=== PATIENT | female | born 1960 | race Caucasian/White ===

== ENCOUNTER 2017-10-28 08:50 | Outpatient (CLI) | payer BC, MEDICARE, SELFPAY | END 2017-10-28 09:20 | disposition home or self-care (01) | PROVIDERS: Visit Provider Internal Medicine | DX: Z45.2 Encounter for adjustment and management of vascular access device (principal) | CPT/HCPCS: 96523; J1642 ==

== ENCOUNTER 2017-11-25 10:55 | Outpatient (CLI) | payer BC, MEDICARE, SELFPAY ==
[2017-11-25 11:00] VITALS: BMI 29.0
[2017-11-25 11:20] VITALS: BP 134/81; PULSE 82; RESP 18; TEMP 36.4
== END 2017-11-25 12:00 | disposition home or self-care (01) ==
LOC: INF 14:42
PROVIDERS: Family Provider Internal Medicine; PCP Family Medicine; Visit Provider Internal Medicine
DX: E61.1 Iron deficiency (principal)
CPT/HCPCS: 96523; J1642

== ENCOUNTER 2017-12-23 11:10 | Outpatient (CLI) | payer BC, MEDICARE, SELFPAY | END 2017-12-23 11:25 | disposition home or self-care (01) | LOC: INF 11:22 | PROVIDERS: Family Provider Internal Medicine; PCP Family Medicine; Visit Provider Internal Medicine | DX: Z45.2 Encounter for adjustment and management of vascular access device (principal) | CPT/HCPCS: 96523; J1642 ==

== ENCOUNTER 2018-01-27 12:40 | Outpatient (CLI) | payer BC, MEDICARE, SELFPAY ==
[2018-01-27 12:45] VITALS: BP 133/81; PULSE 64; RESP 18; TEMP 36.7; O2SAT 98
== END 2018-01-27 13:00 | disposition home or self-care (01) ==
LOC: INF 12:51
PROVIDERS: Family Provider Internal Medicine; PCP Family Medicine; Visit Provider Internal Medicine
DX: Z45.2 Encounter for adjustment and management of vascular access device (principal)
CPT/HCPCS: 96523; J1642

== ENCOUNTER 2018-02-22 10:56 | Outpatient (CLI) | payer BC, MEDICARE, SELFPAY ==
[2018-02-22 10:50] VITALS: BP 162/72; PULSE 97; RESP 18; TEMP 36.6; O2SAT 100
== END 2018-02-22 11:00 | disposition home or self-care (01) ==
LOC: INF 10:56
PROVIDERS: Family Provider Internal Medicine; PCP Family Medicine; Visit Provider Internal Medicine
DX: Z45.2 Encounter for adjustment and management of vascular access device (principal)
CPT/HCPCS: 96523; J1642

== ENCOUNTER 2018-04-29 13:40 | Outpatient (CLI) | payer MEDICARE, BC, SELFPAY | END 2018-04-29 14:00 | disposition home or self-care (01) | PROVIDERS: Family Provider Internal Medicine; PCP Family Medicine; Visit Provider Internal Medicine | DX: Z45.2 Encounter for adjustment and management of vascular access device (principal) | CPT/HCPCS: 96523; J1642 ==

== ENCOUNTER 2018-07-19 13:46 | Outpatient (CLI) | payer MEDICARE, BC, SELFPAY | END 2018-07-19 13:50 | disposition home or self-care (01) | LOC: INF 13:46 | PROVIDERS: Family Provider Internal Medicine; PCP Family Medicine; Visit Provider Internal Medicine | DX: Z45.2 Encounter for adjustment and management of vascular access device (principal) | CPT/HCPCS: 96523; J1642 ==

== ENCOUNTER → 2018-09-15 08:06 | Outpatient (CLI) | payer MEDICARE, BC, SELFPAY ==
--- NOTE | 2018-09-15 08:07 | MM_ITS ---
MM Dig screening mamm BI w/CAD CAD Screening COMPARISON: Digital mammograms with CAD 06/12/2016 and 06/03/2015 INDICATION: There is no personal or family history of breast cancer. This been previous biopsy right breast for benign disease. TECHNIQUE: Standard CC and MLO images were obtained. R2 CAD reviewed. FINDINGS: Scattered fibroglandular densities are seen in both breast. There are numerous benign-appearing micro and macrocalcifications lower inner quadrant right breast as noted previously. There are couple benign-appearing calcination is left breast. A Mediport catheter overlies the axillary tail right breast. There is a stable benign-appearing nodular density near the axillary tail left breast likely a low-lying node. There is no suspicious lesion and there are no suspicious microcalcifications. IMPRESSION: Stable exam with no suspicious lesion seen BI-RADS Category: 2 Benign Finding(s) RECOMMENDED FOLLOW-UP: 1YR - 1 YEAR FOLLOW-UP (A letter has been sent to the patient regarding results of the study.)
== END ==
PROVIDERS: PCP Family Medicine; Visit Provider Nurse Practitioner Obstetrics & Gynecology
DX: Z12.31 Encounter for screening mammogram for malignant neoplasm of breast (principal)
CPT/HCPCS: 77067

== ENCOUNTER 2018-11-08 14:04 | Outpatient (CLI) | payer MEDICARE, BC, SELFPAY | END 2018-11-08 14:20 | disposition home or self-care (01) | LOC: INF 14:04 | PROVIDERS: Visit Provider Family Medicine | DX: Z45.2 Encounter for adjustment and management of vascular access device (principal) | CPT/HCPCS: 96523; J1642 ==

== ENCOUNTER 2018-12-07 11:35 | Outpatient (CLI) | payer MEDICARE, BC, SELFPAY | END 2018-12-07 11:50 | disposition home or self-care (01) | LOC: INF 11:35 | PROVIDERS: Visit Provider Family Medicine | DX: Z45.2 Encounter for adjustment and management of vascular access device (principal) | CPT/HCPCS: 96523; J1642 ==

== ENCOUNTER 2019-01-04 12:21 | Outpatient (CLI) | payer MEDICARE, BC, SELFPAY | END 2019-01-04 12:33 | disposition home or self-care (01) | LOC: INF 12:21 | PROVIDERS: Visit Provider Family Medicine | DX: Z45.2 Encounter for adjustment and management of vascular access device (principal) | CPT/HCPCS: 96523; J1642 ==

== ENCOUNTER 2019-02-07 14:30 | Outpatient (CLI) | payer MEDICARE, BC, SELFPAY | END 2019-02-07 14:50 | disposition home or self-care (01) | LOC: INF 14:47 | PROVIDERS: Visit Provider Family Medicine | DX: Z45.2 Encounter for adjustment and management of vascular access device (principal) | CPT/HCPCS: 96523; J1642 ==

== ENCOUNTER 2019-05-05 13:20 | Outpatient (CLI) | payer MEDICARE, BC, SELFPAY ==
[2019-05-05 13:41] VITALS: BMI 31.5
[2019-05-07 17:09] LABS: Vitamin B12 1340 pg/mL (232-1245)
== END 2019-05-05 14:40 | disposition home or self-care (01) ==
LOC: INF 13:28
PROVIDERS: Visit Provider Family Medicine
DX: E53.8 Deficiency of other specified B group vitamins (principal); Z45.2 Encounter for adjustment and management of vascular access device
CPT/HCPCS: 82607; J1642

== ENCOUNTER 2019-07-20 11:11 | Outpatient (CLI) | payer MEDICARE, BC, SELFPAY | END 2019-07-20 11:30 | disposition home or self-care (01) | LOC: INF 11:11 | PROVIDERS: Visit Provider Family Medicine | DX: Z45.2 Encounter for adjustment and management of vascular access device (principal) | CPT/HCPCS: 96523; J1642 ==

== ENCOUNTER 2019-08-16 10:01 | Outpatient (CLI) | payer MEDICARE, BC, SELFPAY | END 2019-08-16 10:45 | disposition home or self-care (01) | LOC: INF 10:01 | PROVIDERS: PCP Family Medicine; Visit Provider Family Medicine | DX: Z45.2 Encounter for adjustment and management of vascular access device (principal) | CPT/HCPCS: 96523; J1642 ==

== ENCOUNTER → 2019-09-11 08:09 | Outpatient (CLI) | payer MEDICARE, BC, SELFPAY ==
[2019-09-11 08:35] LABS: Basophils % 0.7 % (0.1-2.0); Eosinophils # 0.2 K/mm3 (0.0-0.4); Eosinophils % 2.9 % (0.1-12.0); Hematocrit 39.2 % (37.0-47.0); Hemoglobin 12.5 g/dL (12.2-16.2); Lymphocytes # 1.3 K/mm3 (0.7-4.5); Lymphocytes % 20.4 % (10-50); Mean Corpuscular HGB Conc 31.8 g/dL (31.8-35.4); Mean Corpuscular Hemoglobin 28.2 pg (27.0-31.2); Mean Corpuscular Volume 88.8 fl (81-99); Mean Platelet Volume 7.7 fl (7.4-10.4); Monocytes # 0.4 K/mm3 (0.1-1.0); Monocytes % 6.2 % (1.7-9.3); Neutrophils # 4.3 K/mm3 (1.8-7.8); Neutrophils % 69.8 % (37.0-80.0); Platelet Count 265 K/mm3 (142-424); Red Blood Count 4.41 M/mm3 (4.20-5.40); Red Cell Distribution Width 13.6 % (11.5-17.5); White Blood Count 6.1 K/mm3 (4.8-10.8)
[2019-09-11 10:01] LABS: Alanine Aminotransferase 21 U/L (12-78); Albumin Level 3.6 gm/dL (3.4-5.0); Albumin/Globulin Ratio 1.5 (1.1-1.8); Alkaline Phosphatase 106 U/L (46-116); Anion Gap 12.1 mEq/L (5-15); Aspartate Amino Transferase 12 U/L (15-37); Bilirubin,Total 0.3 mg/dL (0.2-1.0); Blood Urea Nitrogen 13 mg/dL (7-18); Calcium 8.3 mg/dL (8.5-10.1); Carbon Dioxide 27 mmol/L (21.0-32.0); Chloride 107 mmol/L (98-107); Estimated Glomerular Filt Rate 73 ml/min (>60); GFR (African American) 89 ML/MIN (>60); Globulin 2.4 gm/dl (1.3-3.2); Glucose 87 mg/dL (74-106); Potassium 4.1 mmoL/L (3.5-5.1); Sodium 142 mmol/L (136-145)
[2019-09-12 09:20] LABS: Vitamin B12 1161 pg/mL (232-1245); Vitamin D 25 Hydroxy 23.5 ng/mL (30.0-100.0)
== END ==
PROVIDERS: Visit Provider Psychiatry & Neurology Clinical Neurophysiology
DX: G35 Multiple sclerosis (principal); E55.9 Vitamin D deficiency, unspecified
CPT/HCPCS: 36415; 80053; 82607; 82652; 85025

== ENCOUNTER 2019-10-30 09:17 | Outpatient (CLI) | payer MEDICARE, BC, SELFPAY ==
[2019-10-30 09:25] VITALS: BP 135/75; PULSE 72; RESP 18; TEMP 36.6; O2SAT 98
== END 2019-10-30 09:30 | disposition home or self-care (01) ==
LOC: INF 09:17
PROVIDERS: Visit Provider Family Medicine
DX: Z45.2 Encounter for adjustment and management of vascular access device (principal)
CPT/HCPCS: 96523; J1642

== ENCOUNTER 2019-11-27 09:41 | Outpatient (CLI) | payer MEDICARE, BC, SELFPAY | END 2019-11-27 09:55 | disposition home or self-care (01) | LOC: INF 09:41 | PROVIDERS: Visit Provider Family Medicine | DX: Z45.2 Encounter for adjustment and management of vascular access device (principal) | CPT/HCPCS: 96523; J1642 ==

== ENCOUNTER 2020-01-26 10:05 | Outpatient (CLI) | payer MEDICARE, BC, SELFPAY | END 2020-01-26 10:14 | disposition home or self-care (01) | LOC: INF 10:05 | PROVIDERS: PCP Family Medicine; Visit Provider Family Medicine | DX: Z45.2 Encounter for adjustment and management of vascular access device (principal) | CPT/HCPCS: 96523; J1642 ==

== ENCOUNTER 2020-02-23 09:24 | Outpatient (CLI) | payer MEDICARE, BC, SELFPAY ==
[2020-02-23 09:15] VITALS: BP 112/74; PULSE 68; RESP 20; TEMP 36.9; O2SAT 95
== END 2020-02-23 09:35 | disposition home or self-care (01) ==
LOC: INF 09:24
PROVIDERS: Visit Provider Family Medicine
DX: Z45.2 Encounter for adjustment and management of vascular access device (principal)
CPT/HCPCS: 96523; J1642

== ENCOUNTER → 2020-03-13 12:48 | Outpatient (CLI) | payer MEDICARE, BC, SELFPAY ==
[2020-03-13 13:19] LABS: Basophils % 0.4 % (0.1-2.0); Eosinophils # 0.2 K/mm3 (0.0-0.4); Hematocrit 37.9 % (37.0-47.0); Hemoglobin 11.7 g/dL (12.2-16.2); Lymphocytes # 1.3 K/mm3 (0.7-4.5); Lymphocytes % 16.4 % (10-50); Mean Corpuscular Hemoglobin 25.2 pg (27.0-31.2); Mean Corpuscular Volume 81.3 fl (81-99); Mean Platelet Volume 7.7 fl (7.4-10.4); Monocytes # 0.6 K/mm3 (0.1-1.0); Monocytes % 6.9 % (1.7-9.3); Neutrophils % 74.3 % (37.0-80.0); Platelet Count 342 K/mm3 (142-424); Red Blood Count 4.65 M/mm3 (4.20-5.40)
[2020-03-13 14:15] LABS: Alanine Aminotransferase 15 U/L (12-78); Albumin Level 4.1 g/dl (3.5-5.0); Albumin/Globulin Ratio 1.9 (1.1-1.8); Alkaline Phosphatase 91 U/L (38-126); Anion Gap 7.7 mEq/L (5-15); Aspartate Amino Transferase 19 U/L (14-36); Bilirubin,Total 0.3 mg/dl (0.2-1.3); Blood Urea Nitrogen 14 mg/dl (7-17); Calcium 9.1 mg/dl (8.4-10.2); Carbon Dioxide 28 mmol/L (22.0-30.0); Chloride 106 mmol/L (98-107); Estimated Glomerular Filt Rate 73 ml/min (>60); GFR (African American) 88 ML/MIN (>60); Globulin 2.2 g/dL (1.3-3.2); Glucose 96 mg/dl (74-100); Potassium 4.7 mmoL/L (3.5-5.1); Sodium 137 mmol/L (136-145); Total Protein,Serum 6.3 g/dl (6.3-8.2)
[2020-03-14 11:16] LABS: Vitamin B12 1166 pg/mL (232-1245); Vitamin D 25 Hydroxy 68.6 ng/mL (30.0-100.0)
== END ==
PROVIDERS: Visit Provider Psychiatry & Neurology Clinical Neurophysiology
DX: G35 Multiple sclerosis (principal); E55.9 Vitamin D deficiency, unspecified; E53.8 Deficiency of other specified B group vitamins
CPT/HCPCS: 36415; 80053; 82607; 82652; 85025

== ENCOUNTER 2020-04-26 10:04 | Outpatient (CLI) | payer MEDICARE, BC, SELFPAY ==
[2020-04-26 10:38] VITALS: BP 112/74; PULSE 68; RESP 20
== END 2020-04-26 10:50 | disposition home or self-care (01) ==
LOC: INF 10:04
PROVIDERS: Visit Provider Family Medicine
DX: Z45.2 Encounter for adjustment and management of vascular access device (principal)
CPT/HCPCS: 96523; J1642

== ENCOUNTER 2020-05-28 10:10 | Outpatient (CLI) | payer MEDICARE, BC, SELFPAY ==
[2020-05-28 10:20] VITALS: TEMP 36.6
== END 2020-05-28 10:20 | disposition home or self-care (01) ==
LOC: INF 10:10
PROVIDERS: Visit Provider Family Medicine
DX: Z45.2 Encounter for adjustment and management of vascular access device (principal)
CPT/HCPCS: 96523; J1642

== ENCOUNTER 2020-07-24 09:50 | Outpatient (CLI) | payer MEDICARE, BC, SELFPAY | END 2020-07-24 10:10 | disposition home or self-care (01) | LOC: INF 09:52 | PROVIDERS: Visit Provider Family Medicine | DX: Z45.2 Encounter for adjustment and management of vascular access device (principal) | CPT/HCPCS: 96523; J1642 ==

== ENCOUNTER 2020-08-21 10:41 | Outpatient (CLI) | payer MEDICARE, BC, SELFPAY | END 2020-08-21 10:49 | disposition home or self-care (01) | LOC: INF 10:42 | PROVIDERS: PCP Family Medicine; Visit Provider Family Medicine | DX: Z45.2 Encounter for adjustment and management of vascular access device (principal) | CPT/HCPCS: 96523; J1642 ==

== ENCOUNTER → 2020-09-10 16:00 | Outpatient (CLI) | payer MEDICARE, BC, SELFPAY ==
[2020-09-10 16:29] LABS: Basophils % 0.4 % (0.1-2.0); Eosinophils # 0.2 K/mm3 (0.0-0.4); Eosinophils % 1.5 % (0.1-12.0); Hematocrit 41.1 % (37.0-47.0); Hemoglobin 12.8 g/dL (12.2-16.2); Lymphocytes # 1.6 K/mm3 (0.7-4.5); Lymphocytes % 15.6 % (10-50); Mean Corpuscular Hemoglobin 25.1 pg (27.0-31.2); Mean Platelet Volume 7.6 fl (7.4-10.4); Monocytes # 0.6 K/mm3 (0.1-1.0); Monocytes % 5.7 % (1.7-9.3); Neutrophils # 7.6 K/mm3 (1.8-7.8); Neutrophils % 76.7 % (37.0-80.0); Platelet Count 324 K/mm3 (142-424); Red Blood Count 5.08 M/mm3 (4.20-5.40); Red Cell Distribution Width 15.1 % (11.5-17.5); White Blood Count 9.9 K/mm3 (4.8-10.8)
[2020-09-10 18:16] LABS: Chloride 103 mmol/L (98-107); Potassium 4.1 mmoL/L (3.5-5.1); Sodium 141 mmol/L (136-145)
[2020-09-10 18:18] LABS: Blood Urea Nitrogen 12 mg/dl (7-17)
[2020-09-10 18:19] LABS: Alanine Aminotransferase 18 U/L (12-78); Albumin Level 4.4 g/dl (3.5-5.0); Albumin/Globulin Ratio 1.8 (1.1-1.8); Alkaline Phosphatase 121 U/L (38-126); Anion Gap 15.1 mEq/L (5-15); Aspartate Amino Transferase 26 U/L (14-36); Bilirubin,Total 0.3 mg/dl (0.2-1.3); Calcium 9.4 mg/dl (8.4-10.2); Carbon Dioxide 27 mmol/L (22.0-30.0); Estimated Glomerular Filt Rate 73 ml/min (>60); GFR (African American) 88 ML/MIN (>60); Globulin 2.4 g/dL (1.3-3.2); Glucose 89 mg/dl (74-100); Total Protein,Serum 6.8 g/dl (6.3-8.2)
[2020-09-10 22:06] LABS: Barbiturates Screen,Urine Negative ng/ml (<200)
[2020-09-10 22:07] LABS: Amphetamine/Metha Screen,Urine Negative ng/ml (<1000); Benzodiazepines Screen,Urine Negative ng/ml (<200)
[2020-09-10 22:08] LABS: Methadone Screen,Urine Negative ng/ml (<300)
[2020-09-10 22:09] LABS: Cannabinoid Screen,Urine Negative ng/ml (<50); Cocaine Screen,Urine Negative ng/ml (<300)
[2020-09-10 22:10] LABS: Opiate Screen,Urine Negative ng/ml (<300)
[2020-09-10 22:11] LABS: Phencyclidine Screen,Urine Negative ng/ml (<25)
== END ==
PROVIDERS: Visit Provider Psychiatry & Neurology Clinical Neurophysiology
DX: Z79.899 Other long term (current) drug therapy (principal)
CPT/HCPCS: 36415; 80053; 80305; 85025

== ENCOUNTER 2020-10-14 10:38 | Outpatient (CLI) | payer MEDICARE, BC, SELFPAY | END 2020-10-14 10:42 | disposition home or self-care (01) | LOC: INF 10:45 | PROVIDERS: Visit Provider Family Medicine | DX: Z45.2 Encounter for adjustment and management of vascular access device (principal) | CPT/HCPCS: 96523; J1642 ==

== ENCOUNTER 2020-11-15 09:15 | Outpatient (CLI) | payer MEDICARE, BC, SELFPAY | END 2020-11-15 09:40 | disposition home or self-care (01) | LOC: INF 09:18 | PROVIDERS: Visit Provider Family Medicine | DX: Z45.2 Encounter for adjustment and management of vascular access device (principal) | CPT/HCPCS: 96523; J1642 ==

== ENCOUNTER 2021-01-23 09:43 | Outpatient (CLI) | payer MEDICARE, BC, SELFPAY | END 2021-01-23 09:52 | disposition home or self-care (01) | LOC: INF 09:44 | PROVIDERS: Visit Provider Family Medicine | DX: Z45.2 Encounter for adjustment and management of vascular access device (principal) | CPT/HCPCS: 96523; J1642 ==

== ENCOUNTER 2021-02-19 09:46 | Outpatient (CLI) | payer MEDICARE, BC, SELFPAY ==
[2021-02-19 09:50] VITALS: BMI 29.8
[2021-02-19 10:14] LABS: Basophils % 0.5 % (0.1-2.0); Eosinophils # 0.3 K/mm3 (0.0-0.4); Eosinophils % 2.9 % (0.1-12.0); Hemoglobin 10.2 g/dL (12.2-16.2); Lymphocytes # 1.8 K/mm3 (0.7-4.5); Lymphocytes % 20.3 % (10-50); Mean Corpuscular Hemoglobin 23.8 pg (27.0-31.2); Mean Corpuscular Volume 76.8 fl (81-99); Mean Platelet Volume 7.8 fl (7.4-10.4); Monocytes # 0.5 K/mm3 (0.1-1.0); Monocytes % 5.4 % (1.7-9.3); Neutrophils # 6.1 K/mm3 (1.8-7.8); Neutrophils % 70.9 % (37.0-80.0); Platelet Count 336 K/mm3 (142-424); Red Blood Count 4.29 M/mm3 (4.20-5.40); Red Cell Distribution Width 15.8 % (11.5-17.5); White Blood Count 8.7 K/mm3 (4.8-10.8)
[2021-02-19 10:22] LABS: Alanine Aminotransferase 14 U/L (12-78); Albumin Level 3.8 g/dl (3.5-5.0); Albumin/Globulin Ratio 1.9 (1.1-1.8); Alkaline Phosphatase 102 U/L (38-126); Anion Gap 5.9 mEq/L (5-15); Aspartate Amino Transferase 19 U/L (14-36); Bilirubin,Total 0.2 mg/dl (0.2-1.3); Blood Urea Nitrogen 11 mg/dl (7-17); Calcium 8.4 mg/dl (8.4-10.2); Carbon Dioxide 28 mmol/L (22.0-30.0); Chloride 111 mmol/L (98-107); Creatinine Clearance Estimated 68 mL/min (50-200); Estimated Glomerular Filt Rate 73 ml/min (>60); GFR (African American) 88 ML/MIN (>60); Glucose 92 mg/dl (74-100); Potassium 3.9 mmoL/L (3.5-5.1); Sodium 141 mmol/L (136-145); Total Protein,Serum 5.8 g/dl (6.3-8.2)
[2021-02-19 10:25] LABS: Barbiturates Screen,Urine Negative ng/ml (<200)
[2021-02-19 10:26] LABS: Amphetamine/Metha Screen,Urine Negative ng/ml (<1000); Benzodiazepines Screen,Urine Negative ng/ml (<200)
[2021-02-19 10:27] LABS: Cannabinoid Screen,Urine Negative ng/ml (<50); Methadone Screen,Urine Negative ng/ml (<300)
[2021-02-19 10:28] LABS: Cocaine Screen,Urine Negative ng/ml (<300)
[2021-02-19 10:29] LABS: Opiate Screen,Urine Negative ng/ml (<300); Phencyclidine Screen,Urine Negative ng/ml (<25)
== END 2021-02-19 10:15 | disposition home or self-care (01) ==
LOC: INF 09:46
PROVIDERS: Visit Provider Family Medicine
DX: Z45.2 Encounter for adjustment and management of vascular access device (principal); G35 Multiple sclerosis; Z51.81 Encounter for therapeutic drug level monitoring
CPT/HCPCS: 80053; 80305; 85025; J1642

== ENCOUNTER → 2021-04-16 19:43 | Outpatient (CLI) | payer MEDICARE, BC, SELFPAY | PROVIDERS: PCP Family Medicine; Visit Provider Specialist | DX: I10 Essential (primary) hypertension (principal); R40.0 Somnolence; G47.30 Sleep apnea, unspecified; R06.83 Snoring; G47.61 Periodic limb movement disorder | CPT/HCPCS: 95810 ==

== ENCOUNTER 2021-05-21 09:52 | Outpatient (CLI) | payer MEDICARE, SELFPAY | END 2021-05-21 10:05 | disposition home or self-care (01) | LOC: INF 09:52 | PROVIDERS: Visit Provider Family Medicine | DX: Z45.2 Encounter for adjustment and management of vascular access device (principal) | CPT/HCPCS: 96523; J1642 ==

== ENCOUNTER 2021-06-17 11:51 | Outpatient (CLI) | payer MEDICARE, SELFPAY | END 2021-06-17 12:21 | disposition home or self-care (01) | PROVIDERS: PCP Family Medicine; Visit Provider Family Medicine | DX: Z45.2 Encounter for adjustment and management of vascular access device (principal) | CPT/HCPCS: 96523; J1642 ==

== ENCOUNTER 2021-06-28 09:02 | Emergency (ER) | payer MEDICARE, SELFPAY ==
[2021-06-28 09:17] VITALS: BP 128/85; PULSE 103; RESP 18; TEMP 36.9; O2SAT 94; BMI 32.1
--- NOTE | 2021-06-28 09:53 | HMH.EDUTC ---
[facility] [place] Clinical Impression: Viral syndrome, Exposure to COVID-19 virus Sinusitis Qualifiers: Sinusitis location: unspecified location Chronicity: unspecified Qualified Code(s): J32.9 - Chronic sinusitis, unspecified Disposition: Home, Self-Care Condition on Discharge: Good Instructions: DI for Sinusitis, DI for COVID-19 (Suspected or Confirmed ), Preventing the Spread of Coronavirus Discharge Instructions Additional Instructions: Drink plenty of fluids. Take tylenol or ibuprofen for pain or fever. Take the medications as directed. Follow up with your regular doctor. GO TO THE ER FOR ANY WORSENING SYMPTOMS Quarantine until you know the results of your covid-19 test. If it is positive, the health department should call you and give you further instructions about your length of Quarantine and other things. Notify your school or workplace of your results and follow their instructions regarding return to work/school. Prescriptions: Benzonatate [Tessalon Perle 100mg Cap] 100 mg PO TIDP PRN #30 cap PRN Reason: Cough Transmission Status: Received by [id number] Azithromycin [Z-Cricket 250mg Tab*] 250 mg PO UD DOSE PK #6 tab Transmission Status: Received by [id number] Referrals: Tata Tinoco MD [Primary Care Provider] - Time of Disposition: 10:10 Medical Decision Making - Medical Records Medical records reviewed: No: I reviewed the patient's medical records. - Omar Inquiry Pt receiving controlled substance: No Vital Signs: 06/28/21 09:17 06/28/21 10:16 Temperature 98.5 F 98.4 F Temperature Source Oral Pulse Rate 99 H Pulse Rate [Left] 103 H Respiratory Rate 18 19 Blood Pressure 128/85 Blood Pressure [Right Arm] 128/85 Blood Pressure Mean [Right Arm] 99 02 Sat by Pulse Oximetry 94 L Orders (Tests/Meds): ORDERS Category Date Time Status Covid-19 Nasal PCR ([facility]) Routine Lab 06/28/21 09:23 [place]ceived [facility] [place] - General Stated complaint: fever body aches, cough Time Seen by Provider: 06/28/21 09:15 Mode of Arrival: Ambulatory Source of Information: Patient Limitations: No Limitations Description of Symptoms (Recalled from Triage Doc. by RN): pt c/o chills, fever, body aches and RAZA ongoing since last night. HEENT Symptoms (Recalled from RN notes): Yes (RAZA) Resp Symptoms (Recalled from RN notes): No Skin Symptoms (Recalled from RN notes): No MS Symptoms (Recalled from RN notes): No Functional Status (Recalled from RN notes): chills, fever and body aches - History of Present Illness Provider Complaint: She is here to have a covid test. She has felt bad for the past 2 days and she has had sinus congestion. - Related Data Home Medications Medication Instructions Recorded Confirmed Ibuprofen [Advil 200mg Tab] 400 mg PO Q4HP PRN 11/25/17 05/21/21 Imipramine HCl [Tofranil] 25 mg PO HS 11/25/17 05/21/21 Multivitamin [Multi-Day Vitamins] 1 each PO DAILY 11/25/17 05/21/21 Omeprazole [Omeprazole 20mg Tab] 20 mg PO DAILY 11/25/17 05/21/21 Sertraline HCl [Zoloft] 100 mg PO HS 11/25/17 05/21/21 Simvastatin 80 mg PO HS 11/25/17 05/21/21 Trospium Chloride [Trospium 60 mg PO DAILY 11/25/17 05/21/21 Chloride ER] Verapamil HCl [Verapamil ER Pm] 200 mg PO HS 11/25/17 05/21/21 Zolpidem Tartrate [Ambien Cr] 12.5 mg PO HS 11/25/17 05/21/21 lisinopriL [Lisinopril 10mg Tab] 10 mg PO DAILY 11/25/17 05/21/21 Cholecalciferol (Vitamin D3) 50,000 unit PO WEEKLY 10/30/19 05/21/21 [Vitamin D3 50,000 unit Cap] Ocrelizumab [Ocrevus] 300 mg IV DIRECTED 10/30/19 05/21/21 cyanocobalamin (vitamin B-12) 500 500 mcg PO DAILY 01/01/20 05/21/21 mcg tablet famciclovir 250 mg tablet 250 mg PO DAILY 01/01/20 05/21/21 cephalexin 500 mg capsule 500 mg PO DAILY cap 03/12/21 05/21/21 gabapentin 100 mg capsule See Rx Instructions PO .COMPLEX 03/12/21 05/21/21 meclizine 12.5 mg tablet 12.5 mg PO TID PRN tab 05/21/21 05/21/21 Previous Rx's Medication Instructions Re
[2021-06-28 10:16] VITALS: BP 128/85; PULSE 99; RESP 19; TEMP 36.9
== END 2021-06-28 10:16 | disposition home or self-care (01) ==
PROVIDERS: Emergency Provider Nurse Practitioner Family; PCP Family Medicine
DX: U07.1 COVID-19 (principal); I10 Essential (primary) hypertension; E78.5 Hyperlipidemia, unspecified; F33.1 Major depressive disorder, recurrent, moderate; Z79.899 Other long term (current) drug therapy
CPT/HCPCS: G0463; 99202; U0003

== ENCOUNTER 2021-08-20 11:05 | Outpatient (CLI) | payer MEDICARE, SELFPAY | END 2021-08-20 11:15 | disposition home or self-care (01) | LOC: INF 11:07 | PROVIDERS: PCP Family Medicine; Visit Provider Family Medicine | DX: Z45.2 Encounter for adjustment and management of vascular access device (principal) | CPT/HCPCS: 96523; J1642 ==

== ENCOUNTER → 2021-09-26 08:12 | Outpatient (CLI) | payer MEDICARE, SELFPAY ==
--- NOTE | 2021-09-26 08:12 | MM_ITS ---
PROCEDURE INFORMATION: Exam: MG Bilateral Screening 3D Mammography Exam date and time: 09/26/2021 8:12 AM Age: 60 years old Clinical indication: Screening mammogram TECHNIQUE: Imaging protocol: Bilateral screening tomosynthesis and 2D mammography including computer-aided detection (CAD) when performed. COMPARISON: 1. MG [facility]BI MM Dig screening mamm BI w/CAD 09/15/2018 9:04 AM 2. MG DMSB DIG MAMM-SCREEN VIET 06/12/2016 8:21 AM 3. MG DMSB DIG MAMM-SCREEN VIET 06/03/2015 9:33 AM 4. MG DMSB DIG MAMM-SCREEN VIET 04/24/2014 10:05 AM FINDINGS: Tubes, catheters and devices: Right chest wall [id number] catheter, unchanged. MAMMOGRAPHY: Breast composition: There are scattered areas of fibroglandular density. Mass: None. Architectural distortion: No new or suspicious architectural distortion. Calcifications: Stable benign-appearing calcifications are present. No new or suspicious cluster of microcalcifications have developed. Asymmetric density: No new or suspicious asymmetric density is present Skin thickening: None. Axillary adenopathy: None. IMPRESSION: No mammographic evidence of malignancy. Recommend annual screening mammography unless otherwise clinically indicated. ASSESSMENT: BI-RADS category 2: Benign
== END ==
PROVIDERS: PCP Family Medicine; Visit Provider Nurse Practitioner Obstetrics & Gynecology
DX: Z12.31 Encounter for screening mammogram for malignant neoplasm of breast (principal)
CPT/HCPCS: 77063; 77067

== ENCOUNTER 2021-12-12 09:42 | Outpatient (CLI) | payer MEDICARE, SELFPAY | END 2021-12-12 10:10 | disposition home or self-care (01) | LOC: INF 09:44 | PROVIDERS: PCP Family Medicine; Visit Provider Family Medicine | DX: Z45.2 Encounter for adjustment and management of vascular access device (principal) | CPT/HCPCS: 96523; J1642 ==

== ENCOUNTER 2022-02-09 10:10 | Outpatient (CLI) | payer MEDICARE, SELFPAY | END 2022-02-09 10:40 | disposition home or self-care (01) | LOC: INF 10:12 | PROVIDERS: PCP Family Medicine | DX: Z45.2 Encounter for adjustment and management of vascular access device (principal) | CPT/HCPCS: 96523; J1642 ==

== ENCOUNTER 2022-07-24 09:10 | Outpatient (CLI) | payer MEDICARE, SELFPAY | END 2022-07-24 09:26 | disposition home or self-care (01) | LOC: INF 09:11 | PROVIDERS: PCP Family Medicine; Visit Provider Family Medicine | DX: Z45.2 Encounter for adjustment and management of vascular access device (principal) | CPT/HCPCS: 96523; J1642 ==

== ENCOUNTER 2022-09-01 12:31 | Outpatient (CLI) | payer MEDICARE, SELFPAY ==
[2022-09-01 12:45] VITALS: BP 147/82; PULSE 78; RESP 16; TEMP 36.6; O2SAT 98
== END 2022-09-01 12:55 | disposition home or self-care (01) ==
LOC: INF 12:32
PROVIDERS: PCP Family Medicine; Visit Provider Family Medicine
DX: Z45.2 Encounter for adjustment and management of vascular access device (principal)
CPT/HCPCS: 96523; J1642

== ENCOUNTER 2022-09-06 18:42 | Emergency (ER) | payer MEDICARE, SELFPAY ==
[2022-09-06 18:52] VITALS: BP 175/97; PULSE 98; RESP 18; TEMP 36.8; O2SAT 98; BMI 26.4
--- NOTE | 2022-09-06 19:05 | CT_ITS ---
PROCEDURE INFORMATION: Exam: CT Cervical Spine Without Contrast Exam date and time: 09/06/2022 8:17 PM Age: 61 years old Clinical indication: Injury or trauma; Blunt trauma; Injury date: 09/06/22; Injury details: Fall laceration to RT fontal head TECHNIQUE: Imaging protocol: Computed tomography of the cervical spine without contrast. Radiation optimization: All CT scans at this facility use at least one of these dose optimization techniques: automated exposure control; mA and/or kV adjustment per patient size (includes targeted exams where dose is matched to clinical indication); or iterative reconstruction. COMPARISON: CT HEAD/BRAIN WO CON 09/06/2022 8:14 PM FINDINGS: Bones/joints: There is no evidence of acute fracture. There is mild diffuse osteopenia. The cervical spine demonstrates mild discogenic and spondylitic degenerative changes, most noted at the C6-C7 level. Are appear to a of the. Alignment is intact from skull base to T1. The atlantooccipital articulations are preserved. The facet joints are appropriately aligned. The predental interval appears normal. Vertebral body heights are preserved without compression fracture. The predental interval is within range of normal aside from mild degenerative changes. Paranasal sinuses: The visualized portions of the sinuses are clear. Mastoid air cells: The mastoid sinuses are normal. Dental: Dental amalgam artifact limits evaluation of adjacent structures. Prevertebral and retropharyngeal spaces: No prevertebral soft tissue edema. Lungs: The visualized portions of the lung apices are normal. Thyroid: There is mild heterogeneity of the thyroid lobes, greater on the left with a few small nonspecific hypodensities. A few small punctate calcifications in left thyroid lobe are present. Lymph nodes: No pathologic adenopathy. Soft tissues: No focal soft tissue hematomas. IMPRESSION: No acute posttraumatic abnormality.
--- NOTE | 2022-09-06 19:06 | CT_ITS ---
PROCEDURE INFORMATION: Exam: CT Head Without Contrast Exam date and time: 09/06/2022 8:14 PM Age: 61 years old Clinical indication: Injury or trauma; Blunt trauma (contusions or hematomas); Injury date: 09/06/22; Injury details: Fall laceration to RT fontal head; Additional info: Cerebral hemorrhage suspected TECHNIQUE: Imaging protocol: Computed tomography of the head without contrast. Radiation optimization: All CT scans at this facility use at least one of these dose optimization techniques: automated exposure control; mA and/or kV adjustment per patient size (includes targeted exams where dose is matched to clinical indication); or iterative reconstruction. COMPARISON: No relevant prior studies available. FINDINGS: Brain: The cortical/white matter interfaces are preserved throughout the brain. The visualized basilar cisterns are patent. There is no evidence of mass, mass effect or midline shift. There is no evidence of acute hemorrhage within the brain parenchyma or the subarachnoid space. There is mild heterogeneity and patchy areas of bilateral decreased attenuation of the white matter consistent with chronic white matter ischemic change. Mild diffuse cerebral atrophy is consistent with this patient's age. The intracranial vasculature demonstrates diffuse moderate atherosclerotic calcification. Cerebral ventricles: No ventriculomegaly. Paranasal sinuses: The visualized portions of the sinuses are clear. Mastoid air cells: The mastoid sinuses are normal. Orbital cavities: The orbits are normal. Dental: Dental amalgam artifact limits evaluation of adjacent structures. Bones/joints: See Soft tissues finding. Soft tissues: There is mild soft tissue prominence involving the right superolateral and inferolateral periorbital soft tissues suggesting mild edema/contusion.There is no evidence of acute fracture. Benign hyperostosis frontalis is present. IMPRESSION: No acute posttraumatic intracranial abnormality. Mild soft tissue prominence involving the right periorbital soft tissues consistent with mild edema/post contusive change.
--- NOTE | 2022-09-06 19:15 | HMH.EDGENADL ---
Discharge Plan Disposition Patient Disposition: Home, Self-Care Condition: Good Chief Complaint: Fall Prescriptions Prescriptions: No Action cyanocobalamin (vitamin B-12) 500 mcg tablet 500 mcg PO DAILY famciclovir 250 mg tablet 250 mg PO DAILY cephalexin 500 mg capsule 500 mg PO DAILY Label Comments: TAKE 1 CAPSULE BY MOUTH ONCE DAILY FOR 90 DAYS meclizine 12.5 mg tablet 12.5 mg PO TID PRN Label Comments: TAKE 1 TABLET BY MOUTH THREE TIMES DAILY NEEDED multivitamin 1 EACH tablet 1 each PO DAILY sertraline 100 MG tablet 100 mg PO HS simvastatin 80 MG tablet 80 mg PO HS verapamil 200 MG capsule, [address] 200 mg PO HS lisinopril 10 MG tablet 10 mg PO DAILY ibuprofen 200 MG tablet 400 mg PO Q4HP PRN (Reason: Mild Pain) imipramine HCl 25 MG tablet 25 mg PO HS zolpidem 12.5 MG tablet,ext release multiphase 12.5 mg PO HS trospium 60 MG capsule,extended release 24hr 60 mg PO DAILY omeprazole 20 MG tablet,delayed release (DR/EC) 20 mg PO DAILY gabapentin 100 mg capsule See Rx Instructions PO .COMPLEX Rx Instructions: 100mg in the am [id number] hs PO; ocrelizumab 300 MG/10 ML solution 300 mg IV DIRECTED cholecalciferol (vitamin D3) 50,000 UNIT capsule 50,000 unit PO WEEKLY azithromycin 250 MG tablet 250 mg PO UD DOSE PK Qty: 6 0RF Rx Instructions: Take two (2) tablets today, then one (1) tablet days #2 thru #5 benzonatate 100 MG capsule 100 mg PO TIDP PRN (Reason: Cough) Qty: 30 0RF Referrals Follow up/Referrals: Tata Tinoco MD [Primary Care Provider] - See instructions Clinical Impressions Clinical Impression: Fall, Facial laceration Discharge ED Provider: Mark Still General Adult HPI General Chief complaint: Fall Stated complaint: fall Time Seen by Provider: 09/06/22 18:55 Mode of Arrival: EMS Source of Information: Patient Limitations: No Limitations Description of Symptoms (Recalled from ER Triage Doc. by RN): c/o right above eye laceration and back of head laceration after falling on the pavement at home. PT states that she was getting out of the car and they have a break in the pavement and she hit her toe causing her to fall. Denies any loc or other injuries at this time. History of Present Illness HPI narrative: Patient is is a 61-year-old female who presents after a fall earlier today. She states that they were out for a walk when she subsequently tripped on the pavement and fell and hit her head. She believes that she had her glasses which caused a eyebrow laceration and also complains of pain on the back of her head where she thinks she has a laceration as well. She denies any loss of consciousness. She does have numbness and tingling into her extremities but states that she has multiple sclerosis so this is baseline for her. She was able to ambulate after the fall. Denies any chest or abdominal pain. Denies any shortness of breath. Denies any cervical pain. She is currently in cervical collar. Related Data Home Medications Medication Instructions Recorded Confirmed ibuprofen 200 mg tablet 400 mg PO Q4HP PRN Mild Pain 11/25/17 05/21/21 imipramine HCl 25 mg tablet 25 mg PO HS BLADDER CONTROL 11/25/17 05/21/21 lisinopril 10 mg tablet 10 mg PO DAILY High blood pressure 11/25/17 05/21/21 multivitamin 1 each PO DAILY Supplement 11/25/17 05/21/21 omeprazole 20 mg tablet,delayed 20 mg PO DAILY GERD 11/25/17 05/21/21 release sertraline 100 mg tablet 100 mg PO HS Depression 11/25/17 05/21/21 simvastatin 80 mg tablet 80 mg PO HS Cholesterol 11/25/17 05/21/21 trospium 60 mg capsule,extended 60 mg PO DAILY BLADDER 11/25/17 05/21/21 release 24 hr verapamil 200 mg capsule 24hr 200 mg PO HS High blood pressure 11/25/17 05/21/[address],ext.release zolpidem 12.5 mg tablet,extended 12.5 mg PO HS Insomnia 11/25/17 05/21/21 re
--- NOTE | 2022-09-06 19:15 | PC.NURSE ---
Pt gone to RAD
--- NOTE | 2022-09-06 19:28 | PC.NURSE ---
Pt back from RAD
--- NOTE | 2022-09-06 19:46 | PC.NURSE ---
Dr. Still at BS to suture
[2022-09-06 20:00] VITALS: BP 188/104; PULSE 91; O2SAT 97
[2022-09-06 20:30] VITALS: BP 182/115; PULSE 86; O2SAT 98
--- NOTE | 2022-09-06 20:55 | PC.NURSE ---
Pt able to ambulate with no problems
[2022-09-06 21:23] VITALS: BP 180/92; PULSE 82; RESP 18; TEMP 36.6; O2SAT 99
== END 2022-09-06 21:26 | disposition home or self-care (01) ==
PROVIDERS: Emergency Provider Student in an Organized Health Care Education/Training Program; PCP Family Medicine
DX: S01.111A Laceration without foreign body of right eyelid and periocular area, initial encounter (principal); S01.01XA Laceration without foreign body of scalp, initial encounter; R20.2 Paresthesia of skin; G35 Multiple sclerosis; Z79.1 Long term (current) use of non-steroidal anti-inflammatories (NSAID); Z79.899 Other long term (current) drug therapy; W01.0XXA Fall on same level from slipping, tripping and stumbling without subsequent striking against object, initial encounter; Y93.9 Activity, unspecified
CPT/HCPCS: 12011; 70450; 72125; 90715; 99285

== ENCOUNTER 2022-11-03 11:04 | Outpatient (CLI) | payer MEDICARE, SELFPAY | END 2022-11-03 11:32 | disposition home or self-care (01) | LOC: INF 11:05 | PROVIDERS: PCP Family Medicine; Visit Provider Family Medicine | DX: Z45.2 Encounter for adjustment and management of vascular access device (principal) | CPT/HCPCS: 96523; J1642 ==

== ENCOUNTER 2022-12-15 09:52 | Outpatient (CLI) | payer MEDICARE, SELFPAY | END 2022-12-15 10:00 | disposition home or self-care (01) | LOC: INF 09:54 | PROVIDERS: PCP Family Medicine; Visit Provider Family Medicine | DX: Z45.2 Encounter for adjustment and management of vascular access device (principal) | CPT/HCPCS: 96523; J1642 ==

== ENCOUNTER → 2023-06-24 12:48 | Outpatient (CLI) | payer MEDICARE, SELFPAY ==
[2023-06-24 13:24] LABS: Basophils % 0.4 % (0.1-2.0); Eosinophils # 0.3 K/mm3 (0.0-0.4); Eosinophils % 3.9 % (0.1-12.0); Hematocrit 40.4 % (37.0-47.0); Hemoglobin 13.2 g/dL (12.2-16.2); Lymphocytes # 1.1 K/mm3 (0.7-4.5); Lymphocytes % 15.6 % (10-50); Mean Corpuscular HGB Conc 32.7 g/dL (31.8-35.4); Mean Corpuscular Hemoglobin 28.3 pg (27.0-31.2); Mean Corpuscular Volume 86.6 fl (81-99); Mean Platelet Volume 8.3 fl (7.4-10.4); Monocytes # 0.5 K/mm3 (0.1-1.0); Monocytes % 7.9 % (1.7-9.3); Neutrophils # 4.9 K/mm3 (1.8-7.8); Neutrophils % 72.2 % (37.0-80.0); Platelet Count 204 K/mm3 (142-424); Red Blood Count 4.67 M/mm3 (4.20-5.40); Red Cell Distribution Width 15.3 % (11.5-17.5); White Blood Count 6.8 K/mm3 (4.8-10.8)
[2023-06-24 13:58] LABS: Chloride 105 mmol/L (98-107)
[2023-06-24 13:59] LABS: Potassium 4.3 mmoL/L (3.5-5.1); Sodium 139 mmol/L (136-145)
[2023-06-24 14:02] LABS: Anion Gap 9.3 mEq/L (5-15); Blood Urea Nitrogen 16 mg/dl (7-17); Calcium 8.8 mg/dl (8.4-10.2); Carbon Dioxide 29 mmol/L (22.0-30.0); Estimated Glomerular Filt Rate 72 ml/min (>60); GFR (African American) 87 ML/MIN (>60); Glucose 76 mg/dl (74-100)
== END ==
PROVIDERS: PCP Family Medicine; Visit Provider Surgery
DX: Z91.81 History of falling (principal); G35 Multiple sclerosis
CPT/HCPCS: 36415; 80048; 85025

== ENCOUNTER 2024-05-26 08:26 | Outpatient (CLI) | payer MEDICARE, SELFPAY ==
--- NOTE | 2024-05-26 08:29 | MM_ITS ---
PROCEDURE INFORMATION: Exam: MG Bilateral Screening 3D Mammography Exam date and time: 05/26/2024 8:18 AM Age: 63 years old Clinical indication: Screening examination TECHNIQUE: Imaging protocol: Bilateral Screening tomosynthesis and 2D mammography including computer-aided detection (CAD) when performed. COMPARISON: 1. MG MM DIG SCREENING MAMM BI W/CAD 09/26/2021 8:14 AM 2. MG [facility]BI MM Dig screening mamm BI w/CAD 09/15/2018 9:04 AM FINDINGS: MAMMOGRAPHY: Breast composition: There are scattered areas of fibroglandular density. Mass: None. Architectural distortion: None. Calcifications: No suspicious calcifications. Asymmetric density: None. Skin thickening: None. Axillary adenopathy: None. IMPRESSION: No mammographic evidence of malignancy. Annual screening is recommended unless otherwise clinically indicated. ASSESSMENT: BI-RADS Category 1: Negative
== END 2024-05-26 23:59 | disposition home or self-care (01) ==
LOC: RAD 08:26
PROVIDERS: PCP Family Medicine; Visit Provider Family Medicine
DX: Z12.31 Encounter for screening mammogram for malignant neoplasm of breast (principal)
CPT/HCPCS: 77063; 77067

== ENCOUNTER 2024-11-30 12:50 | Outpatient (CLI) | payer MEDICARE, SELFPAY ==
[2024-11-30 14:05] LABS: Erythrocyte Sedimentation Rate 8 mm/hr (0-30)
[2024-11-30 14:28] LABS: Creatine Kinase 73 U/L (30-135)
[2024-11-30 14:46] LABS: 25-OH Vitamin D, Total 99.7 ng/mL (30-100)
[2024-11-30 15:05] LABS: Phencyclidine Screen,Urine Negative ng/ml (<25)
[2024-11-30 15:06] LABS: Opiate Screen,Urine Negative ng/ml (<300)
[2024-11-30 15:08] LABS: Barbiturates Screen,Urine Negative ng/ml (<200); Benzodiazepines Screen,Urine Negative ng/ml (<200)
[2024-11-30 15:09] LABS: Amphetamine/Metha Screen,Urine Negative ng/ml (<1000)
[2024-11-30 15:10] LABS: Cannabinoid Screen,Urine Negative ng/ml (<50); Cocaine Screen,Urine Negative ng/ml (<300)
[2024-11-30 15:11] LABS: Methadone Screen,Urine Negative ng/ml (<300)
[2024-11-30 15:19] LABS: Vitamin B12 957 pg/mL (239-931)
[2024-12-05 12:35] LABS: Immunoglobulin A, Qn 97 mg/dL (87-352); Immunoglobulin G, Qn 332 mg/dL (586-1602); Immunoglobulin M, Qn 17 mg/dL (26-217)
== END 2024-11-30 23:59 | disposition home or self-care (01) ==
LOC: LAB 12:51
PROVIDERS: PCP Family Medicine; Visit Provider Psychiatry & Neurology Clinical Neurophysiology
DX: G35 Multiple sclerosis (principal); E53.8 Deficiency of other specified B group vitamins; E55.9 Vitamin D deficiency, unspecified; R53.1 Weakness; Z79.899 Other long term (current) drug therapy
CPT/HCPCS: 36415; 80307; 82306; 82550; 82607; 82784; 85651; 86334

== ENCOUNTER 2024-12-11 14:58 | Outpatient (CLI) | payer MEDICARE, SELFPAY ==
--- NOTE | 2024-12-11 15:06 | XR_ITS ---
FINAL REPORT CLINICAL HISTORY: LEFT WRIST INJURY COMPARISON: none FINDINGS: LEFT WRIST Three views show no evidence of an acute, displaced fracture or dislocation of the visualized bony architecture. There are mild degenerative changes. Osteopenia is noted. IMPRESSION: Degenerative changes without acute process. Reviewed, Interpreted and Dictated by Rich Ragsdale MD Transcribed by Gabriella Tate Authenticated and [facility]
== END 2024-12-11 23:59 | disposition home or self-care (01) ==
LOC: RAD 15:00
PROVIDERS: PCP Family Medicine; Visit Provider Nurse Practitioner
DX: M25.532 Pain in left wrist (principal); S69.92XA Unspecified injury of left wrist, hand and finger(s), initial encounter
CPT/HCPCS: 73110

== ENCOUNTER 2025-02-27 09:00 | Outpatient (RCR) | payer MEDICARE, SELFPAY | END 2025-02-27 23:59 | disposition home or self-care (01) | LOC: PT 09:00 | PROVIDERS: Visit Provider Psychiatry & Neurology Clinical Neurophysiology | DX: G35 Multiple sclerosis (principal) | CPT/HCPCS: 97163 ==

== ENCOUNTER 2025-03-29 09:06 | Outpatient (CLI) | payer MEDICARE, SELFPAY ==
--- OUTSIDE RECORDS SUMMARY | 2025-03-29 09:08 | XMS_ITS ---
Author Organization Unknown Medications Date Medication Dosage DosageUnit StartDate StopDate StopReason Active DoseQuantity DoseUnit Dispense DispenseUnit Refills NdcCode DrugCode PharmacyId IsPrescription MappedMedication Srcstatus 01/09 00:00 :00 Celecoxib 50 MG Capsule 10/07/2023 00:00:00 1 30 0 [id number] 8 260 P Taking 12/26 00:00 :00 Celecoxib 50 MG Capsule 10/07/2023 00:00:00 1 30 0 [id number] 8 260 P Taking 12/18 00:00 :00 Celecoxib 50 MG Capsule 10/07/2023 00:00:00 1 30 0 [id number] 8 260 P Taking 12/11 00:00 :00 Celecoxib 50 MG Capsule 10/07/2023 00:00:00 1 30 0 [id number] 8 260 P Taking 01/09 00:00 :00 Ferrous Sulfate 325 (65 Fe) MG Tablet 03/04/2021 00:00:00 1 30 [id number] 6 078 P Taking 12/26 00:00 :00 Ferrous Sulfate 325 (65 Fe) MG Tablet 03/04/2021 00:00:00 1 30 [id number] 6 078 P Taking 12/18 00:00 :00 Ferrous Sulfate 325 (65 Fe) MG Tablet 03/04/2021 00:00:00 1 30 [id number] 6 078 P Taking 12/11 00:00 :00 Ferrous Sulfate 325 (65 Fe) MG Tablet 03/04/2021 00:00:00 1 30 [id number] 6 078 P Taking 01/09 00:00 :00 Gabapentin 100 MG Capsule 1 30 6275 6013 702 Taking 12/26 00:00 :00 Gabapentin 100 MG Capsule 1 30 6275 6013 702 Taking 12/18 00:00 :00 Gabapentin 100 MG Capsule 1 30 6275 6013 702 Taking 12/11 00:00 :00 Gabapentin 100 MG Capsule 1 30 6275 6013 702 Taking 01/09 00:00 :00 Imipramine HCl 25 MG Tablet 1 1814024 3 401 Taking 12/26 00:00 :00 Imipramine HCl 25 MG Tablet 1 [id number] 3 401 Taking 12/18 00:00 :00 Imipramine HCl 25 MG Tablet 1 [id number] 3 401 Taking 12/11 00:00 :00 Imipramine HCl 25 MG Tablet 1 [id number] 3 401 Taking 01/17 00:00 :00 Lisinopril 20 MG Tablet 1 90 Tablet 0 6 8345241 190 Start 01/17 00:00 :00 Lisinopril 20 MG Tablet 0 90 0 [id number] 55 354 Stop 01/09 00:00 :00 Lisinopril 20 MG Tablet 11/29/2023 00:00:00 1 90 0 [id number] 5 354 P Taking 12/26 00:00 :00 Lisinopril 20 MG Tablet 11/29/2023 00:00:00 1 90 0 [id number] 5 354 P Taking 12/18 00:00 :00 Lisinopril 20 MG Tablet 11/29/2023 00:00:00 1 90 0 [id number] 5 354 P Taking 12/11 00:00 :00 Lisinopril 20 MG Tablet 11/29/2023 00:00:00 1 90 0 [id number] 5 354 P Taking 01/09 00:00 :00 Meclizine HCl 12.5 MG Tablet 03/04/2021 00:00:00 1 90 Tablet 2 57746 038 608 P Taking 12/26 00:00 :00 Meclizine HCl 12.5 MG Tablet 03/04/2021 00:00:00 1 90 Tablet 2 41421 038 608 P Taking 12/18 00:00 :00 Meclizine HCl 12.5 MG Tablet 03/04/2021 00:00:00 1 90 Tablet 2 60702 038 608 P Taking 12/11 00:00 :00 Meclizine HCl 12.5 MG Tablet 03/04/2021 00:00:00 1 90 Tablet 2 69353 038 608 P Taking 01/09 00:00 :00 Omeprazole 20 MG Capsule Delayed Release 1 90 Capsule 1 [id number] 010 Taking 01/09 00:00 :00 Omeprazole 20 MG 0 90 0 P Not Taking 12/26 00:00 :00 Omeprazole 20 MG 1 90 0 P Taking 12/26 00:00 :00 Omeprazole 20 MG Capsule Delayed Release 1 90 Capsule 1 [id number] 010 Taking 12/18 00:00 :00 Omeprazole 20 MG 1 90 0 P Taking 12/18 00:00 :00 Omeprazole 20 MG Capsule Delayed Release 1 90 Capsule 1 [id number] 010 Taking 12/11 00:00 :00 Omeprazole 20 MG 1 90 0 P Taking 12/11 00:00 :00 Omeprazole 20 MG Capsule Delayed Release 1 90 Capsule 1 [id number] 010 Taking 01/09 00:00 :00 oxyBUTYnin Chloride 5 MG Tablet 1 60 1013 5064 001 Taking 12/26 00:00 :00 oxyBUTYnin Chloride 5 MG Tablet 1 60 1013 5064 001 Taking 12/18 00:00 :00 oxyBUTYnin Chloride 5 MG Tablet 1 60 1013 5064 001 Taking 12/11 00:00 :00 oxyBUTYnin Chloride 5 MG Tablet 1 60 1013 5064 001 Taking 01/09 00:00 :00 predniSONE 5 MG Tablet 12/26/2024 00:00:00 0 29 0 [id number] 2 825 P Not Taking 01/09 00:00 :00 predniSONE 5 MG (21) Tablet Therapy Pack 12/29/2023 00:00:00 0 21 0 [id number] 5 221 P Not Taking 12/26 00:00 :00 predniSONE 5 MG Tablet 12/26/2024 00:00:00 1 29 0 [id number] 2 825 P Start 12/26 00:00 :00 predniSONE 5 MG (21) Tablet Therapy Pack 12/29/2023 00:00:00 0 21 0 [id number] 5 221 P Not Taking 12/18 00:00 :00 predniSONE 5 MG (21) Tablet Therapy Pack 12/29/2023 00:00:00 0 21 0 [id number] 5 221 P Not Taking 12/11 00:00 :00 predniSONE 5 MG (21) Tablet Therapy Pack 12/29/2023 00:00:00 0 21 0 [id number] 5 221 P Not Taking 08/09 00:00 :00 predniSONE 5 MG (21) Tablet Therapy Pack 12/29/2023 00:00:00 0 21 0 [id number] 5 221 P Not Taking 01/09 00:00 :00 Provigil 100 MG Tablet 1 [id number] 0 130 Taking 12/26 00:00 :00 Provigil 100 MG Tablet 1 [id number] 0 130 Taking 12/18 00:00 :00 Provigil 100 MG Tablet 1 [id number] 0 130 Taking 12/11 00:00 :00 Provigil 100 MG Tablet 1 [id number] 0 130 Taking 01/09 00:00 :00 Sertraline HCl 100 MG Tablet 1 30 [id number] 01 305 Taking 12/26 00:00 :00 Sertraline HCl 100 MG Tablet 1 30 [id number] 01 305 Taking 12/18 00:00 :00 Sertraline HCl 100 MG Tablet 1 30 [id number] 01 305 Taking 12/11 00:00 :00 Sertraline HCl 100 MG Tablet 1 30 [id number] 01 305 Taking 01/09 00:00 :00 Simvastatin 80 MG Tablet 1 90 0 [id number] 046 509 Taking 12/28 00:00 :00 Simvastatin 80 MG Tablet 1 90 0 24598 046 509 Start 12/28 00:00 :00 Simvastatin 80 MG Tablet 0 90 0 [id number] 046 509 Stop 12/26 00:00 :00 Simvastatin 80 MG Tablet 1 90 0 12995 046 509 Taking 12/18 00:00 :00 Simvastatin 80 MG Tablet 1 90 0 73178 046 509 Taking 12/11 00:00 :00 Simvastatin 80 MG Tablet 1 90 0 76246 046 509 Taking 01/09 00:00 :00 traMADol HCl 25 MG Tablet 12/26/2024 00:00:00 0 28 Tablet 0 11867 016 230 P Not Taking 12/26 00:00 :00 traMADol HCl 25 MG Tablet 12/26/2024 00:00:00 1 28 Tablet 0 94367 016 230 P Start 01/09 00:00 :00 Trospium Chloride ER 60 MG Capsule Extended Release 24 Hour 1 30 [id number] 830 Taking 12/26 00:00 :00 Trospium Chloride ER 60 MG Capsule Extended Release 24 Hour 1 30 [id number] 830 Taking 12/18 00:00 :00 Trospium Chloride ER 60 MG Capsule Extended Release 24 Hour 1 30 [id number] 830 Taking 12/11 00:00 :00 Trospium Chloride ER 60 MG Capsule Extended Release 24 Hour 1 30 [id number] 830 Taking 01/09 00:00 :00 Verapamil HCl ER 240 MG Tablet Extended Release 12/03/2023 00:00:00 1 90 1 [id number] 5 901 P Taking 12/26 00:00 :00 Verapamil HCl ER 240 MG Tablet Extended Release 12/03/2023 00:00:00 1 90 1 [id number] 5 901 P Taking 12/18 00:00 :00 Verapamil HCl ER 240 MG Tablet Extended Release 12/03/2023 00:00:00 1 90 1 [id number] 5 901 P Taking 12/11 00:00 :00 Verapamil HCl ER 240 MG Tablet Extended Release 12/03/2023 00:00:00 1 90 1 [id number] 5 901 P Taking 11/28 00:00 :00 Verapamil HCl ER 240 MG Tablet Extended Release 12/03/2023 00:00:00 1 90 1 [id number] 5 901 P Refill 01/09 00:00 :00 Vitamin B12 1000 MCG Tablet Extended Release 1 30 [id number] 252 Taking 12/26 00:00 :00 Vitamin B12 1000 MCG Tablet Extended Release 1 30 [id number] 252 Taking 12/18 00:00 :00 Vitamin B12 1000 MCG Tablet Extended Release 1 30 [id number] 252 Taking 12/11 00:00 :00 Vitamin B12 1000 MCG Tablet Extended Release 1 30 [id number] 252 Taking 01/09 00:00 :00 Vitamin D (Ergocalcif hunter) 87436 UNIT Capsule 02/02/2019 00:00:00 1 4 2 [id number] 0 901 P Taking 02/25 /2025 00:00 :00 Vitamin D (Ergocalcif hunter) 55407 UNIT Capsule 02/02/2019 00:00:00 1 4 2 [id number] 0 901 P Taking 12/18 00:00 :00 Vitamin D (Ergocalcif hunter) 47294 UNIT Capsule 02/02/2019 00:00:00 1 4 2 [id number] 0 901 P Taking 12/11 00:00 :00 Vitamin D (Ergocalcif hunter) 47541 UNIT Capsule 02/02/2019 00:00:00 1 4 2 [id number] 0 901 P Taking 01/09 00:00 :00 Zolpidem Tartrate 12.5 MG Tablet Extended Release 1 [id number] 211 Taking 12/26 00:00 :00 Zolpidem Tartrate 12.5 MG Tablet Extended Release 1 [id number] 211 Taking 12/18 00:00 :00 Zolpidem Tartrate 12.5 MG Tablet Extended Release 1 [id number] 211 Taking 12/11 00:00 :00 Zolpidem Tartrate 12.5 MG Tablet Extended Release 1 [id number] 211 Taking
--- NOTE | 2025-03-29 09:09 | XR_ITS ---
FINAL REPORT TECHNIQUE: Bone densitometry calculations of the lumbar spine and left hip were obtained. CLINICAL HISTORY: SCREENING COMPARISON: None FINDINGS: Using L1-4, the bone mineral density of the spine is 0.806 g/cm2, corresponding to T-score of -2.2. Using the left hip, the bone mineral density of the femoral neck is 0.442 g/cm2, corresponding to a T-score of -3.7. Using the right hip, the bone mineral density of the femoral neck is 0.543 g/cm?, corresponding to a T-score of -2.8. NOTE: T-score: Standard deviation compared with peak bone mass of young adult mean. *Following the recommendations of the International Society of Bone densitometry, classification of hip BMD is based on the lower of two T-scores; total hip or femoral neck. IMPRESSION: Diminished bone mineral density of the bilateral hips consistent with osteoporosis. Diminished bone mineral density of the lumbar spine consistent with osteopenia. Reviewed, Interpreted and Dictated by Eddy White MD Transcribed by Julia Nelson Authenticated and [facility]
== END 2025-03-29 23:59 | disposition home or self-care (01) ==
LOC: RAD 09:06
PROVIDERS: PCP Family Medicine; Visit Provider Family Medicine
DX: M81.0 Age-related osteoporosis without current pathological fracture (principal); M85.88 Other specified disorders of bone density and structure, other site; Z13.9 Encounter for screening, unspecified
CPT/HCPCS: 77080

== ENCOUNTER 2025-03-29 13:00 | Outpatient (RCR) | payer MEDICARE, SELFPAY | END 2025-03-29 23:59 | disposition home or self-care (01) | LOC: PT 13:00 | PROVIDERS: Visit Provider Psychiatry & Neurology Clinical Neurophysiology | DX: G35 Multiple sclerosis (principal) | CPT/HCPCS: 97113 ==

== ENCOUNTER 2025-04-30 13:00 | Outpatient (RCR) | payer MEDICARE, SELFPAY | END 2025-04-30 23:59 | disposition home or self-care (01) | LOC: PT 13:00 | PROVIDERS: Visit Provider Psychiatry & Neurology Clinical Neurophysiology | DX: G35 Multiple sclerosis (principal) | CPT/HCPCS: 97113 ==

== ENCOUNTER → 2025-05-23 13:00 | Outpatient (RCR) | payer MEDICARE, SELFPAY | LOC: PT 05-02 14:12 | PROVIDERS: Visit Provider Psychiatry & Neurology Clinical Neurophysiology | DX: G35 Multiple sclerosis (principal) | CPT/HCPCS: 97113 ==